=== PATIENT | female | born 1940 | race Caucasian/White ===

== ENCOUNTER → 2017-03-14 | Outpatient (CLI) | payer MEDICARE, BC ==
--- NOTE | 2017-03-14 12:19 | MR ---
EXAMINATION TYPE: MR brain wo/w con DATE OF EXAM: 03/14/2017 COMPARISON: Report of outside CT dated February 2017 HISTORY: Transient alteration awareness, TIA, Headache TECHNIQUE: Multiplanar, multisequence images of the brain and brainstem is performed without and with IV contras t, utilizing 20 mL intravenous MultiHance . FINDINGS: Diffusion weighted images demonstrate no evidence of a recent infarct or other diffusion ab normality. There is no extra-axial fluid collection. Periventricular and deep white matter shows sca ttered and confluent foci of increased signal on inversion recovery and T2-weighted sequences. The ve ntricular system and cisternal spaces are normal in size and appearance. The brain volume is age amirah ropriate, there is cortical atrophy. Cerebellopontine angles are normal Midline structures demonstrate normal morphology. The craniocervical junction appears within normal limits. Post contrast images demonstrate no abnormal enhancement. The dural venous sinuses appear pa tent. The visualized sinuses are remarkable for minimal mucosal disease within the maxillary sinuses left greater than right, ethmoid air cells and the globes are intact. IMPRESSION: White matter demyelination may be on the basis of chronic small vessel ischemia. Age-rela amanda atrophy. Mild sinus disease.
== END | disposition home or self-care (01) ==
LOC: RADMRIMAIN 08:40
PROVIDERS: ATTEND Nurse Practitioner Family
DX: G37.9 Demyelinating disease of central nervous system, unspecified (principal); G31.9 Degenerative disease of nervous system, unspecified; R90.82 White matter disease, unspecified; G45.9 Transient cerebral ischemic attack, unspecified; G52.9 Cranial nerve disorder, unspecified
CPT/HCPCS: 70553; A9577

== ENCOUNTER → 2018-04-19 | Outpatient (CLI) | payer MEDICARE, BC ==
--- NOTE | 2018-04-19 13:50 | US ---
EXAMINATION TYPE: US thyroid st tissue head/neck DATE OF EXAM: 04/19/2018 COMPARISON: NONE CLINICAL HISTORY: Primary hyperparathyroidism E21.0. GLAND SIZE: Right Lobe: 4.2 x 1.7 x 1.5 cm Overall Parenchyma: heterogenous Left Lobe: 3.8 x 1.6 x 1.5 cm Overall Parenchyma: heterogeneous Isthmus Thickness: 0.5 cm NODULES RIGHT: # of nodules measured on right: 1 1. 0.4 X 0.4 x 0.4 cm hypoechoic solid area at the lower pole with irregular margins. This nodule is wider as is tall and shows no intranodular vascularity. LEFT: # of nodules measured on left: 0 ISTHMUS: # of nodules measured in the isthmus: 0 Bilateral neck scanned: inferior and medial to left thyroid a hypoechoic oval area is seen = 0.4 x 0. 4 x 0.2cm. IMPRESSION: Right posterior thyroid nodule measuring 4 mm an additional 4 mm hypoechoic area just medial to the l eft thyroid lobe. These could represent parathyroid adenomas in the setting of hyperparathyroidism an d could be further evaluated with nuclear medicine parathyroid scan.
== END | disposition home or self-care (01) ==
LOC: RADUSWWP 12:58
PROVIDERS: ATTEND Internal Medicine Endocrinology, Diabetes & Metabolism
DX: E04.1 Nontoxic single thyroid nodule (principal); E21.0 Primary hyperparathyroidism
CPT/HCPCS: 76536

== ENCOUNTER → 2019-01-29 | Outpatient (CLI) | payer MEDICARE, BC ==
[2019-01-29 17:52] LABS: Basophils % (A) 1 %; Eosinophils # (A) 0.2 k/uL (0-0.7); Eosinophils % (A) 5 %; HCT 34.2 % (34.0-46.0); HGB 10.8 gm/dL (11.4-16.0); Hypochromasia Moderate; Lymphocytes # (A) 1.5 k/uL (1.0-4.8); Lymphocytes % (A) 34 %; MCHC 31.5 g/dL (31.0-37.0); MCV 85.5 fL (80.0-100.0); Mean Platelet Volume 7.4; Monocytes # (A) 0.3 k/uL (0-1.0); Monocytes % (A) 7 %; Neutrophils # (A) 2.2 k/uL (1.3-7.7); Neutrophils % (A) 50 %; Platelet Count 227 k/uL (150-450); RDW 13.3 % (11.5-15.5); WBC 4.5 k/uL (3.8-10.6)
[2019-01-30 00:47] LABS: Iron Saturation 11.37 (12.00-45.00)
[2019-01-30 01:00] LABS: Albumin 4.6 g/dL (3.80-4.90); Albumin/Globulin Ratio 2.3 (1.60-3.17); Anion Gap 8.6 mmol/L (4.00-12.00); Calcium 9.6 mg/dL (8.7-10.3); Carbon Dioxide 25.4 mmol/L (21.6-31.8); Magnesium 2.1 mg/dL (1.5-2.4); Potassium 4.1 mmol/L (3.5-5.5); Total Bilirubin 0.3 mg/dL (0.3-1.2); Total Protein 6.6 g/dL (6.2-8.2)
[2019-01-30 01:15] LABS: Parathyroid Hormone Intact 57.3 pg/mL (14.0-72.0)
== END | disposition home or self-care (01) ==
LOC: LABWHC1 16:26
PROVIDERS: ATTEND Psychiatry & Neurology Neurology
DX: L29.9 Pruritus, unspecified (principal); R53.1 Weakness; R21 Rash and other nonspecific skin eruption; R52 Pain, unspecified; T50.905A Adverse effect of unspecified drugs, medicaments and biological substances, initial encounter
CPT/HCPCS: 36415; 80053; 82550; 82607; 83540; 83550; 83735; 83970; 84439; 84443; 85025; 86787

== ENCOUNTER 2021-02-05 07:16 | Day surgery (SDC) | payer MEDICARE ==
--- NOTE | 2021-02-04 09:41 | HP ---
HISTORY AND PHYSICAL CHIEF COMPLAINT: Right hand pain and numbness. HISTORY OF PRESENT ILLNESS: The patient is a 80-year-old retired female who presents with right hand pain and numbness for several years. It has worsened recently. She is having a difficult time with gripping and grasping. She is also having night symptoms. She has tried bracing in the past. PAST MEDICAL HISTORY: Significant for atrial fibrillation, hypertension, hyperlipidemia. PAST SURGICAL HISTORY: Significant for right foot surgery, previous knee surgery and sinus surgery. CURRENT MEDICATIONS: Aspirin, atenolol, Famotidine, gabapentin, levothyroxine, Eliquis, metoprolol, simvastatin. ALLERGIES: SHE NOTES ALLERGIES TO BACLOFEN AND PENICILLIN. FAMILY HISTORY: Significant for cancer and Parkinson's. SOCIAL HISTORY: Negative for current tobacco or alcohol use. REVIEW OF SYSTEMS: Sixteen-point review of systems otherwise reviewed and is noncontributory. PHYSICAL EXAMINATION: On examination, the patient is approximately 5 foot 3 inches, 168 pounds of endomorphic habitus. HEENT exam is nonfocal. Neck is supple. On examination of the right wrist: She has a positive Tinel's over the carpal canal. Adductor pollicis brevis strength 4+ or 5. Light touch is diminished in the right thumb. She has profound thenar atrophy. She has full digital range of motion. EMG report right upper extremity shows median motor latency of the carpal canal of 5.47 with sensory latency 3.39. IMPRESSION: Severe right carpal tunnel syndrome-symptomatic. RECOMMENDATIONS: I talked to the patient at length regarding her condition and treatment options. At this point, she is quite symptomatic and opts to proceed with surgery. We will plan to proceed with right carpal tunnel release. We will likely allow her to resume her Eliquis after the procedure. Risks and benefits were discussed at length in layman's terms. We will likely perform as an outpatient for outpatient procedure utilizing local anesthetic and IV sedation. MMODL / IJN: [id number] /
[2021-02-04 10:30] VITALS: BMI 29.9
[~2021-02-05 07:16] MED LIST: HYDROmorphone 0.5 MG/0.5 ML SYRINGE IVP PRN; LACTATED RINGERS 1,000 ML IV SCH; MIDAZOLAM 2 MG/2 ML VIAL IV PRN
[2021-02-05] MEDS ORDERED: LIDOCAINE 1% (10MG/ML) FOR IV START INTRADERMA ONE (07:56)
[2021-02-05] MEDS ORDERED: DEXAMETHASONE SOD PHOSPHATE 4 MG/ML 1 ML VIAL IV ONE (07:57)
[2021-02-05] MEDS ORDERED: ONDANSETRON 4 MG/2 ML VIAL IVP ONE (07:57)
[2021-02-05 08:00] VITALS: TEMP 97.6
[2021-02-05] MEDS ORDERED: ONDANSETRON 4 MG/2 ML VIAL ONE (08:09)
[2021-02-05] MEDS ORDERED: PROPOFOL 10 MG/ML 20 ML VIAL IV ONE (08:46)
[2021-02-05] MEDS ORDERED: fentaNYL (PF) 50 MCG/ML 2 ML AMP ONE (08:46)
[2021-02-05] MEDS ORDERED: MIDAZOLAM 2 MG/2 ML VIAL ONE (08:46)
[2021-02-05] MEDS ORDERED: BUPIVACAINE (PF) 0.25% 30 ML VIAL SQ ONE (08:49)
--- NOTE | 2021-02-05 09:17 | P.OP ---
Date of Procedure: 02/05/21 Preoperative Diagnosis: Right carpal tunnel syndromesymptomatic Postoperative Diagnosis: Same Procedure(s) Performed: Right carpal tunnel release Anesthesia: MAC, local Surgeon: Toño Sol Estimated Blood Loss (ml): 1 Pathology: none sent Condition: stable Disposition: PACU Indications for Procedure: The patient is a 80-year-old female who presents with progressive right hand pain and numbness secondary to carpal tunnel syndrome despite conservative measures. A discussion the risks and benefits of operative intervention versus continued conservative measures was made with patient and she opted proceed with surgery. Operative risks to include infection, neurovascular injury, development of blood clots, possible incomplete resolution of symptoms, possible recurrence of symptoms and need for subsequent procedures was discussed. Informed consent was obtained. Operative Findings: As below Description of Procedure: The patient was brought to the operating room, and after induction of IV sedation the right upper extremity was prepped and draped in normal fashion. The proposed incision site was outlined skin marker in line with the radial aspect the fourth ray extending from the volar wrist crease distally 2-1/2 cm. One quarter percent plain Marcaine was injected into the proposed incision site. 9 mL was utilized. The tourniquet was inflated to 250 mmHg. The skin incision was then made. The skin was incised sharply. Subcutaneous tissues were divided sharply the superficial palmar fascia was identified and split in line with the skin incision. The transverse carpal ligament was identified and transected under direct visualization distally to level the palmar fat pad. Proximally it was taken to the level of the volar wrist crease. A plane above and below the transverse carpal ligament was then bluntly developed with tenotomies. The confluence of the distal forearm fascia and the transverse carpal ligament was then transected under direct visualization proximally with the tines pointed in the ulnar direction. I felt this was adequate proximal release. Neural lysis was not performed. The wound was irrigated with normal saline. Electrocautery was used for hemostasis. The skin was reapproximated with simple 3-0 nylon sutures. A sterile dressing was applied. The tourniquet was deflated with less than 15 minutes total tourniquet time. Patient was awoken from sedation and transferred to the recovery room in good condition. Blood loss was estimated 1 mL. No complications were incurred. Sponge and needle counts were correct at the end the case.
[2021-02-05 09:20] VITALS: RESP 16
[2021-02-05 09:40] VITALS: BP 146/84; PULSE 67
== END 2021-02-05 09:50 | disposition home or self-care (01) ==
LOC: OR 07:16
PROVIDERS: ATTEND Orthopaedic Surgery
DX: G56.01 Carpal tunnel syndrome, right upper limb (principal); I48.91 Unspecified atrial fibrillation; I10 Essential (primary) hypertension; E78.5 Hyperlipidemia, unspecified; Z98.890 Other specified postprocedural states; E07.9 Disorder of thyroid, unspecified; K21.9 Gastro-esophageal reflux disease without esophagitis; Z79.01 Long term (current) use of anticoagulants; Z79.82 Long term (current) use of aspirin; Z79.890 Hormone replacement therapy; Z79.899 Other long term (current) drug therapy; Z88.0 Allergy status to penicillin; Z88.8 Allergy status to other drugs, medicaments and biological substances
CPT/HCPCS: 64721; J2250; J1100; J0690; J2405; J3010; J2704